=== PATIENT | female | born 1990 | race Caucasian/White ===

== ENCOUNTER 2024-11-02 04:52 | Emergency (ER) | payer SELFPAY ==
[2024-11-02 05:02] VITALS: BP 133/78; PULSE 97; RESP 18; TEMP 37.1; O2SAT 100
== END 2024-11-02 07:30 | disposition left against medical advice (07) ==
DX: R10.30 Lower abdominal pain, unspecified (principal)
CPT/HCPCS: 99199

== ENCOUNTER 2025-05-14 04:24 | Emergency (ER) | payer OTHER, SELFPAY ==
--- NOTE | ~2025-05-14 | US_ITS ---
Pelvic ultrasound. Clinical History: Retained products of conception Technique: Realtime transabdominal and transvaginal scanning of the pelvis was performed. Color flow Doppler and Doppler spectral analysis were performed. Findings: The uterus is anteverted. The endometrial stripe is markedly thickened and heterogeneous, measuring up to 33 mm in thickness. Possible small foci of vascular flow within the endometrium on co troy imaging. The right ovary measures 3.1 x 3.3 x 1.8 cm. No significant right ovarian or adnexal mass is seen. The left ovary measures 1.8 x 1.6 x 1.4 cm. No significant left ovarian or adnexal mass is seen. There is a small amount of free fluid in the cul de sac. Impression: Markedly thickened endometrium with small foci of vascular flow. Findings suggest retained products o f conception. Reviewed, dictated and finalized at [facility]. Impression: Markedly thickened endometrium with small foci of vascular flow. Findings sugge st retained products of conception.
[2025-05-14 04:28] VITALS: BP 140/79; PULSE 90; RESP 20; TEMP 36.2; O2SAT 97
[2025-05-14 04:42] LABS: Basophils Percent Auto 0.4 % (0.2-1.2); Eosinophils Absolute Auto 0.1 K/mm3 (0-0.3); Eosinophils Percent Auto 1.4 % (0-4.4); Hematocrit 40.1 % (37.0-47.0); Hemoglobin 13.3 g/dL (12.0-15.0); Immature Granulocyte Absolute 0.02 K/mm3 (0.00-0.031); Immature Granulocyte Percent A 0.3 % (0-0.5); Lymphocytes Absolute Auto 1.53 K/mm3 (0.9-3.2); Lymphocytes Percent Auto 19.2 % (18.3-44.2); Mean Corpuscular HGB Conc 33.2 g/dl (32-36); Mean Corpuscular Hemoglobin 30.8 pg (26-34); Mean Corpuscular Volume 92.8 fl (80-100); Mean Platelet Volume 9.2 fl (7.4-10.4); Monocytes Absolute Auto 0.5 K/mm3 (0.1-0.6); Monocytes Percent Auto 6.4 % (2.6-8.5); Neutrophils Absolute Auto 5.8 K/mm3 (1.3-6.7); Neutrophils Percent Auto 72.3 % (45.5-73.1); Platelet Count Result 256 k/mm3 (150-375); Red Blood Count 4.32 M/mm3 (4.2-5.4); Red Cell Distribution Width 12.4 % (11.5-14.5)
[2025-05-14 04:52] LABS: INR 1.1; Prothrombin Time 13.8 Seconds (11.1-14.7)
[2025-05-14] MEDS: LACTATED RINGERS 1,000 ML 999 ML IV CONT (04:53)
[2025-05-14 05:00] LABS: Alanine Aminotransferase 19 U/L (6-35); Albumin Level 4.3 g/dL (3.5-5.1); Alkaline Phosphatase 61 U/L (38-126); Anion Gap 11 mmol/L (4-12); Aspartate Amino Transferase 24 U/L (14-36); Bilirubin,Total 0.6 mg/dL (0.2-1.3); Blood Urea Nitrogen 17 mg/dL (7-17); Carbon Dioxide 21 mmol/L (22-30); Chloride 107 mmol/L (98-107); Estimated CRCL calculation 118 ml/min; Estimated Glomerular Filt Rate > 60; Glucose 101 mg/dL (65-110); Sodium 139 mmol/L (137-145); Total Protein 8.1 g/dL (6.3-8.2)
[2025-05-14 05:10] LABS: Partial Thromboplastin Time 26.5 Seconds (22.3-36.8)
--- NOTE | 2025-05-14 05:28 | ED.GENADULT ---
HPI - General Adult General Chief complaint: Vaginal Bleeding <Ralph James MD - Last Filed: 05/14/25 19:18> Stated complaint: vaginal bleeding for 6 weeks <Ralph James MD - Last Filed: 05/14/25 19:18> Time Seen by Provider: 05/14/25 04:27 <Ralph James MD - Last Filed: 05/14/25 19:18> History of Present Illness HPI narrative: 35-year-old female presented emergency department for evaluation for heavy vaginal bleeding that started this morning approximately 130. Patient did have an elective medical on May 02 and . Patient was started on mifepristone on the misoprostol on the . Patient did not started her bruise control and 6/15 (slynd). Patient reports on the and she did have some heavy bleeding that then tapered down. Patient was not having any bleeding or spotting over the last few days until this morning when she large clots that she was passing vaginally. Patient does report lower abdominal cramping <Ralph James MD - Last Filed: 05/14/25 19:18> 35-year-old female presented emergency department for evaluation for heavy vaginal bleeding that started this morning approximately 130. Patient did have an elective medical on APRIL 01 and . Patient was started on mifepristone on the misoprostol on the . Patient did not started her bruise control and 6/15 (slynd). Patient reports on the and she did have some heavy bleeding that then tapered down. Patient was not having any bleeding or spotting over the last few days until this morning when she large clots that she was passing vaginally. Patient does report lower abdominal cramping. Patient reports that she did have a dating ultrasound through [facility] which showed an IUP and when she took the medication for termination she was approximately 7 weeks in gestation. She did not establish care with Gynecology at [facility]. She does not have a local corrections specialist. She used a telephone service to obtain medication. <Aidan Gallo MD - Last Filed: 05/14/25 09:24> Related Data Allergies/adverse reactions: Allergies Allergy/AdvReac Type Severity Reaction Status Date / Time No Known Allergies Allergy Verified 05/14/25 09:07 <Ralph James MD - Last Filed: 05/14/25 19:18> Review of Systems Review of Systems: All systems reviewed & are unremarkable except as noted in HPI and below <Ralph James MD - Last Filed: 05/14/25 19:18> PMFSH Past Medical History Medical History: Medical History (Updated 05/14/25 @ 09:23 by Aidan Gallo MD) Healthy female adult <Ralph James MD - Last Filed: 05/14/25 19:18> Exam Narrative: APPEARANCE: Well appearing, no pain, no distress, well-nourished. HEAD: normocephalic, atraumatic. EYES: PERRLA/EOMI, conjunctivae clear. NOSE: Normal no drainage EARS:TMS clear with good light reflex. THROAT: Pharynx clear, no exudate. NECK: Supple. No adenopathy, no masses. RESPIRATORY: Airway patent, respirations nonlabored. Clear to auscultation bilaterally, no rales, rhonchi, wheezing. CARDIOVASCULAR: Regular rate and rhythm without murmurs rubs or gallops. ABDOMINAL: Lower abdominal tenderness to palpation MUSCULOSKELETAL: Moves all extremities. Strength/ROM intact, No edema, No calf tenderness. NEURO: Alert. Cranial nerves II through XII intact. Good gait. Good coordination SKIN: Warm, dry. Normal Color Pelvic exam: Mild bleeding from the cervix with no hemorrhage and no large clots visualized within the vaginal vault <Ralph James MD - Last Filed: 05/14/25 19:18> Course Course Emergency Course: 917: Patient updated on all labs and imaging results. Discussed case with Dr. Pinto. Recommends repeat beta hCG on 05/16/25 and follow-up in office. Does not recommend RhoGAM as she is 6 weeks out from the . Patient verbalized understanding for follow-up needs. Patient is stable with normal blood pressure/heart rate as well as normal lab work. No evidence of sepsis or significant hemorrhage. Patient is a elective AB 1. <Aidan Gallo MD - Last Filed: 05/14/25 09:24> Vital Signs Vital signs: Vital Signs Temperature 97.2 F L 05/14/25 04:28 Pulse Rate 90 05/14/25 04:28 Respiratory Rate 20 05/14/25 04:28 Blood Pressure 140/79 06/24/25 04:28 Pulse Oximetry 97 05/14/25 04:28 Oxygen Delivery Room Air 05/14/25 04:28 Temperature 97.2 F L 05/14/25 04:28 Pulse Rate 70 05/14/25 09:40 Respiratory Rate 18 05/14/25 09:40 Blood Pressure 127/89 05/14/25 09:40 Pulse Oximetry 100 05/14/25 09:40 Oxygen Delivery Room Air 05/14/25 04:28 <Ralph James MD - Last Filed: 05/14/25 19:18> Vital Signs Temperature 97.2 F L 05/14/25 04:28 Pulse Rate 90 05/14/25 04:28 Respiratory Rate 20 05/14/25 04:28 Blood Pressure 140/79 05/14/25 04:28 Pulse Oximetry 97 05/14/25 04:28 Oxygen Delivery Room Air 05/14/25 04:28 Temperature 97.2 F L 05/14/25 04:28 Pulse Rate 70 05/14/25 09:40 Respiratory Rate 18 05/14/25 09:40 Blood Pressure 127/89 05/14/25 09:40 Pulse Oximetry 100 05/14/25 09:40 Oxygen Delivery Room Air 05/14/25 04:28 <Aidan Gallo MD - Last Filed: 05/14/25 09:24> Medical Decision Making Vital Signs Vital Signs: Vital Signs Temperature 97.2 F L 05/14/25 04:28 Pulse Rate 90 05/14/25 04:28 Respiratory Rate 20 05/14/25 04:28 Blood Pressure 140/79 05/14/25 04:28 Pulse Oximetry 97 05/14/25 04:28 Oxygen Delivery Room Air 05/14/25 04:28 Temperature 97.2 F L 05/14/25 04:28 Pulse Rate 70 05/14/25 09:40 Respiratory Rate 18 05/14/25 09:40 Blood Pressure 127/89 05/14/25 09:40 Pulse Oximetry 100 05/14/25 09:40 Oxygen Delivery Room Air 05/14/25 04:28 <Ralph James MD - Last Filed: 05/14/25 19:18> Vital Signs Temperature 97.2 F L 05/14/25 04:28 Pulse Rate 90 05/14/25 04:28 Respiratory Rate 20 05/14/25 04:28 Blood Pressure 140/79 05/14/25 04:28 Pulse Oximetry 97 05/14/25 04:28 Oxygen Delivery Room Air 05/14/25 04:28 Temperature 97.2 F L 05/14/25 04:28 Pulse Rate 70 05/14/25 09:40 Respiratory Rate 18 05/14/25 09:40 Blood Pressure 127/89 05/14/25 09:40 Pulse Oximetry 100 05/14/25 09:40 Oxygen Delivery Room Air 05/14/25 04:28 <Aidan Gallo MD - Last Filed: 05/14/25 09:24> Lab Data Result diagrams: 05/14/25 04:36 05/14/25 04:35 <Ralph James MD - Last Filed: 05/14/25 19:18> Labs: Lab Results 05/14/25 05/14/25 05/14/25 Range/Units 04:35 04:36 05:46 WBC 8.0 (4.5-10.0) K/mm3 RBC 4.32 (4.2-5.4) M/mm3 Hgb 13.3 (12.0-15.0) g/dL Hct 40.1 (37.0-47.0) % MCV 92.8 (80-100) fl MCH 30.8 (26-34) pg MCHC 33.2 (32-36) g/dl RDW 12.4 (11.5-14.5) % Plt Count 256 (150-375) k/mm3 MPV 9.2 (7.4-10.4) fl Immature Gran % (Auto) 0.3 (0-0.5) % Neut % (Auto) 72.3 (45.5-73.1) % Lymph % (Auto) 19.2 (18.3-44.2) % Island % (Auto) 6.4 (2.6-8.5) % Eos % (Auto) 1.4 (0-4.4) % Baso % (Auto) 0.4 (0.2-1.2) % Lymph # (Auto) 1.53 (0.9-3.2) K/mm3 Island # (Auto) 0.5 (0.1-0.6) K/mm3 Eos # (Auto) 0.1 (0-0.3) K/mm3 Baso # (Auto) 0.0 (0.0-0.1) K/mm3 Abs Immat Gran (auto) 0.02 (0.00-0.031) K/mm3 Absolute Neuts (auto) 5.8 (1.3-6.7) K/mm3 Absolute Nucleated RBC 0.000 (0.0-0.012) K/mm3 Nucleated RBC % 0.0 (0.0-0.2) % PT 13.8 (11.1-14.7) Seconds INR 1.1 APTT 26.5 (22.3-36.8) Seconds Sodium 139 (137-145) mmol/L Potassium 4.0 (3.4-5.0) mmol/L Chloride 107 (98-107) mmol/L Carbon Dioxide 21 L (22-30) mmol/L Anion Gap 11 (4-12) mmol/L BUN 17 (7-17) mg/dL Creatinine 0.63 L (0.7-1.0) mg/dL Estim Creat Clear Calc 118 ml/min Estimated GFR > 60 (59 - ) Glucose 101 (65-110) mg/dL Calcium 9.0 (8.4-10.2) mg/dL Total Bilirubin 0.6 (0.2-1.3) mg/dL AST 24 (14-36) U/L ALT 19 (6-35) U/L Alkaline Phosphatase 61 (38-126) U/L Total Protein 8.1 (6.3-8.2) g/dL Albumin 4.3 (3.5-5.1) g/dL Beta HCG, Quant 55.90 mIU/ML Urine Color Dark yellow (Yellow) Urine Appearance Cloudy H (Clear) Urine pH 5.5 (5.0-9.0) Ur Specific [place] 1.032 (1.001-1.035) Urine Protein 2+ H (Negative) mg/dL Urine Glucose (UA) Negative (Negative) mg/dL Urine Ketones Trace H (Negative) mg/dL Ur Blood (Man) 3+ H (Negative) Urine Nitrate Negative (Negative) Urine Bilirubin Negative (Negative) Urine Urobilinogen 1.0 (<2.0) mg/dL Add Ur Microanalysis Reviewed Leukocyte Esterase Rfl 1+ H (Negative) DARY/UL Urine RBC >100 H (0-2) /hpf Urine WBC 0-5 (0-3) /hpf Ur Squamous Epith Cells Occasional (Few) /hpf Urine Bacteria None seen /hpf Urine Casts 0-2 Blood Type O Negative Antibody Screen Negative <Ralph James MD - Last Filed: 05/14/25 19:18> Lab Results 05/14/25 05/14/25 05/14/25 Range/Units 04:35 04:36 05:46 WBC 8.0 (4.5-10.0) K/mm3 RBC 4.32 (4.2-5.4) M/mm3 Hgb 13.3 (12.0-15.0) g/dL Hct 40.1 (37.0-47.0) % MCV 92.8 (80-100) fl MCH 30.8 (26-34) pg MCHC 33.2 (32-36) g/dl RDW 12.4 (11.5-14.5) % Plt Count 256 (150-375) k/mm3 MPV 9.2 (7.4-10.4) fl Immature Gran % (Auto) 0.3 (0-0.5) % Neut % (Auto) 72.3 (45.5-73.1) % Lymph % (Auto) 19.2 (18.3-44.2) % Island % (Auto) 6.4 (2.6-8.5) % Eos % (Auto) 1.4 (0-4.4) % Baso % (Auto) 0.4 (0.2-1.2) % Lymph # (Auto) 1.53 (0.9-3.2) K/mm3 Island # (Auto) 0.5 (0.1-0.6) K/mm3 Eos # (Auto) 0.1 (0-0.3) K/mm3 Baso # (Auto) 0.0 (0.0-0.1) K/mm3 Abs Immat Gran (auto) 0.02 (0.00-0.031) K/mm3 Absolute Neuts (auto) 5.8 (1.3-6.7) K/mm3 Absolute Nucleated RBC 0.000 (0.0-0.012) K/mm3 Nucleated RBC % 0.0 (0.0-0.2) % PT 13.8 (11.1-14.7) Seconds INR 1.1 APTT 26.5 (22.3-36.8) Seconds Sodium 139 (137-145) mmol/L Potassium 4.0 (3.4-5.0) mmol/L Chloride 107 (98-107) mmol/L Carbon Dioxide 21 L (22-30) mmol/L Anion Gap 11 (4-12) mmol/L BUN 17 (7-17) mg/dL Creatinine 0.63 L (0.7-1.0) mg/dL Estim Creat Clear Calc 118 ml/min Estimated GFR > 60 (59 - ) Glucose 101 (65-110) mg/dL Calcium 9.0 (8.4-10.2) mg/dL Total Bilirubin 0.6 (0.2-1.3) mg/dL AST 24 (14-36) U/L ALT 19 (6-35) U/L Alkaline Phosphatase 61 (38-126) U/L Total Protein 8.1 (6.3-8.2) g/dL Albumin 4.3 (3.5-5.1) g/dL Beta HCG, Quant 55.90 mIU/ML Urine Color Dark yellow (Yellow) Urine Appearance Cloudy H (Clear) Urine pH 5.5 (5.0-9.0) Ur Specific [place] 1.032 (1.001-1.035) Urine Protein 2+ H (Negative) mg/dL Urine Glucose (UA) Negative (Negative) mg/dL Urine Ketones Trace H (Negative) mg/dL Ur Blood (Man) 3+ H (Negative) Urine Nitrate Negative (Negative) Urine Bilirubin Negative (Negative) Urine Urobilinogen 1.0 (<2.0) mg/dL Add Ur Microanalysis Reviewed Leukocyte Esterase Rfl 1+ H (Negative) DARY/UL Urine RBC >100 H (0-2) /hpf Urine WBC 0-5 (0-3) /hpf Ur Squamous Epith Cells Occasional (Few) /hpf Urine Bacteria None seen /hpf Urine Casts 0-2 Blood Type O Negative Antibody Screen Negative <Aidan Gallo MD - Last Filed: 05/14/25 09:24> Imaging Data Radiologist's impression: ITS Impressions Pelvic/Transvag US 05/14/25 08:06 Impression: Markedly thickened endometrium with small foci of vascular flow. Findings suggest retained products of conception. <Aidan Gallo MD - Last Filed: 05/14/25 09:24> Discharge Plan Discharge Clinical Impression: Retained products of conception <Ralph James MD - Last Filed: 05/14/25 19:18> Patient Disposition: Home <Ralph James MD - Last Filed: 05/14/25 19:18> Condition: Stable <Ralph James MD - Last Filed: 05/14/25 19:18> Additional Instructions: It is felt you have retained products of conception. You may require a procedure called a dilation and curettage. You need to obtain a repeat blood test in 2 days through the [facility] lab. You also need to follow-up with the manufacturing electrician listed. Return to the ER if you have worsening bleeding, you have fever over 100.4? F, or you have additional concerns. <Ralph James MD - Last Filed: 05/14/25 19:18> Patient Language: [place] Islander <Ralph James MD - Last Filed: 05/14/25 19:18> Other Ambulatory Orders: Beta HCG Quantitative (Routine) Timeframe: [id number] Facility: [facility] - Location: [facility] Laboratory Ordered By: Aidan Gallo <Ralph James MD - Last Filed: 05/14/25 19:18> Follow-up/Referrals: Joceline Pinto MD [Physician] - 2 Days PHYSICIAN,CLINICAL SYSTEMS EDUCATOR [Primary Care Provider] - <Ralph James MD - Last Filed: 05/14/25 19:18>
[2025-05-14 06:12] LABS: Add Urine Microscopic? YES; Appearance Urine Cloudy (Clear); Bacteria Urine None Seen /hpf; Bilirubin Urine Negative (Negative); Blood Urine 3+ (Negative); Color Urine Dark Yellow (Yellow); Glucose Urine UA Negative (Negative); Ketones Urine Trace mg/dL (Negative); Leukocyte Esterase Ur 1+ LEU/UL (Negative); Need Manual Microscopic Reviewed; Nitrate Urine Negative (Negative); Non Pathogenic Casts 0-2; Protein Urine 2+ mg/dL (Negative); RBC Urine >100 /hpf (0-2); Specific Grav Ur 1.032 (1.001-1.035); Squamous Epithelial Cell Urine Occasional /hpf (Few); WBC Urine 0-5 /hpf (0-3); pH Urine 5.5 (5.0-9.0)
[2025-05-14] MEDS: HYDROmorphone HCL INJ (*CRX) 2 MG/ML VIAL 0.5 MG IV PUSH (06:33)
[2025-05-14 06:53] VITALS: BP 112/71; PULSE 64; RESP 15; O2SAT 100
[2025-05-14 08:05] VITALS: BP 123/80; PULSE 72; RESP 20; O2SAT 99
[2025-05-14 09:40] VITALS: BP 127/89; PULSE 70; RESP 18; O2SAT 100
== END 2025-05-14 09:42 | disposition home or self-care (01) ==
PROVIDERS: Emergency Medicine; Emergency Provider Emergency Medicine
DX: O07.4 Failed attempted termination of pregnancy without complication (principal)
CPT/HCPCS: 36415; 76830; 76856; 80053; 81001; 84702; 85025; 85610; 85730; 86850; 86900; 86901; 87086; 96361; 96374; 99284; J1171; J7120

== ENCOUNTER 2025-05-17 08:21 | Outpatient (CLI) | payer OTHER, SELFPAY ==
[2025-05-17 09:11] LABS: Beta HCG Quantitative 11.76 mIU/ML
== END 2025-05-17 08:22 | disposition home or self-care (01) ==
PROVIDERS: Referring Provider Obstetrics & Gynecology Gynecology; Visit Provider Emergency Medicine
DX: O03.4 Incomplete spontaneous abortion without complication (principal)
CPT/HCPCS: 36415; 84702

== ENCOUNTER 2025-05-27 08:22 | Outpatient (CLI) | payer OTHER, SELFPAY ==
--- OUTSIDE RECORDS SUMMARY | 2025-05-27 08:36 | XMS_ITS | Clinical Summary ---
Author Organization [facility] al Address [address] [place] [address] Care Team Providers Care Formwork Carpenter Name Role Phone No, Physician Primary Care Provider [phone] Allergies No known active allergies Medications omeprazole (PriLOSEC) 20 mg capsule Take 1 capsule (20 mg total) by mouth daily for 14 days 14 capsule 4 Active ciprofloxacin (CIPRO) 500 mg tablet Take 1 tablet (500 mg total) by mouth 2 (two) times a day 14 tablet 4 Active ondansetron ODT (ZOFRAN-ODT) 4 mg disintegrating tablet Dissolve 1 tablet oral every 4 hours as needed for nausea or vomiting. 15 tablet 4 Active dicyclomine (BENTYL) 20 mg tablet Take 1 tablet (20 mg total) by mouth 2 (two) times a day as needed (pain) for up to 10 doses 10 tablet 4 Active Encounters Date Type Department Care Team Description 03/31/2025 4:50 PM CDT - 03/31/2025 9:21 PM CDT Emergency [facility] Emergency Department 1 [place] [address] Jian Brady MD as incidental finding (Primary Dx); Abdominal pain Discharge Disposition: Discharge to home or self care from Last 3 Months Social History Tobacco Use Types Packs/Day Years Used Date Smoking Tobacco: Never Assessed Personal Safety Answer Date Recorded Have you ever been in or are you currently in a harmful physical or emotional relationship or is someone making you feel afraid or unsafe? 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 Gender Identity Not on file Sexual Orientation Not on file Obstetrics History Last Filed Vital Signs Vital Sign Reading Time Taken Comments Blood Pressure 136/75 03/31/2025 4:42 PM CDT Pulse 77 03/31/2025 4:42 PM CDT Temperature 36.9 C (98.5 F) 03/31/2025 4:42 PM CDT Respiratory Rate 16 03/31/2025 4:42 PM CDT Oxygen Saturation 100% 03/31/2025 4:42 PM CDT Inhaled Oxygen Concentration - - Weight 98.9 kg (218 lb) 03/31/2025 4:42 PM CDT Height 157.5 cm (5' 2) 03/31/2025 4:42 PM CDT Body Mass Index 39.87 03/31/2025 4:42 PM CDT Plan of Treatment Health Maintenance Due Date Last Done Comments Cervical Cancer Screening 1989 Depression Screening 1989 Hepatitis C Screening 1989 Varicella Vaccines (1 of 2 - 13+ 2-dose series) 2002 Hepatitis B Screening 2007 Regular Well Visit/Exam 18-64 2007 Influenza Vaccine (Season Ended) 2025 04/13/20 10 DTaP/Tdap/Td Vaccine (2 - Td or Tdap) 01/20/2027 01/20/2017 HPV Vaccines Aged Out No longer eligi ble based on patient's age to complete this topic Pneumococcal vaccine <65 Aged Out No longer eligible based on patient's age to complete this topic Procedures Procedure Name Priority Date/Time Associated Diagnosis Comments POCUS FEMALE TAB PELVIC, NON- 03/31/2025 9:07 PM CDT URINALYSIS, MICROSCOPIC ONLY STAT 03/31/2025 5:20 PM CDT URINALYSIS AND REFLEX TO MICROSCOPIC AND CULTURE STAT 03/31/2025 5:20 PM CDT EGFR STAT 03/31/2025 5:06 PM CDT DIFFERENTIAL AUTO STAT 03/31/2025 5:0 6 PM CDT COMPREHENSIVE METABOLIC PANEL STAT 03/31/2025 5:06 PM CDT CBC WITH AUTO DIFFERENTIAL STAT 03/31/2025 5:06 PM CDT HCG, BLOOD, QUANTITATIVE STAT 03/31/2025 5:06 PM CDT POCT HCG, URINE Routine 03/31/2025 4:57 PM CDT from Last 3 Months Results * POCUS Female TAB Pelvic, Non- (03/31/2025 9:07 PM CDT) Anatomical Region Laterality Modality Other 03/31/2025 8:51 PM CDT Narrative 03/31/2025 9:35 PM CDT Performed by: Jian Brady Transabdominal: Exam Information: Exam type: Diagnostic Indication(s) for Exam: by history, Quantitative hCG (+), Urine hCG (+) Findings: IUP: Present Intrauterine findings: heart rate heart rate =: 152 Interpretation: Live IUP Electronically signed by Jian Brady on Monday, March 31, 2025 at 9:35 PM I have reviewed the images & the resident's interpretation. I agree with the findings. Images on file. Procedure Note Jian Brady MD - 03/31/2025 Performed by: Jian Brady Transabdominal: Exam Information: Exam type: Diagnostic Indication(s) for Exam: by history, Quantitative hCG (+), Urine hCG (+) Findings: IUP: Present Intrauterine findings: heart rate heart rate =: 152 Interpretation: Live IUP Electronically signed by Jian Brady on Monday, March 31, 2025 at 9:35 PM I have reviewed the images & the resident's interpretation. I agree withthe findings. Images on file. us Jian Brady MD POCUS ORDERABLES Final Result * (ABNORMAL) Urinalysis reflex to microscopic and culture Urine (03/31/2025 5:20 PM CDT) Color, ur Yellow Yellow Clarity, ur Clear Clear [facility] Specific gravity, ur 1.032(H) 1.003 - 1.030 [facility] pH, urine 5.5 [facility] Comment: Interpretive Data U rine pH is affected by diet, medications, systemic acid-base disturbances, and renal tubular function. pH may affect urinary stone formation. For example, urine pH below 6.0 may help reduce the tendency for calcium phosphate stones and pH greater than 6.0 may reduce the tendency for uric acid stone formation. Source: [facility] [email or web address] Current Interpretive Data was last revised on 2017 Protein, ur ql Trace Negative [facility] Glucose, ur ql Negative Negative [facility] Ketones, ur Negative Negative [facility] Bilirubin, ur Negative Negative [facility] Blood, ur Trace(A) Negative [facility] Urobilinogen, ur <2.0 <2.0 mg/dL [facility] Nitrite, ur Negative Negative [facility] Leukocyte esterase, ur Trace(A) Negative [facility] UA reflex comment Reflex to microscopic UA will be performed. [facility] Urine 03/31/2025 5:20 PM CDT 03/31/2025 5:25 PM CDT us Jian Brady MD LAB MICROBIOLOGY - GENERAL OR DERABLES Final Result [facility] Department [place] [address] * (ABNORMAL) Urinalysis, microscopic only (03/31/2025 5:20 PM CDT) WBC, ur 0-5 0 - 5 /HPF RBC, ur 0-2 0 - 2 /HPF [facility] Epithelial cells, squamous, ur 1-5 0 - 5 /HPF [facility] Bacteria, ur Trace(A) [facility] Mucous, ur Present(A) [facility] Culture Reflex Comment Reflex conditions for urine culture (WBC >10) not met. [facility] Urine 03/31/2025 5:20 PM CDT 03/31/2025 5:25 PM CDT Jian Brady MD LAB URINE ORDERABLES Final Re sult Performing Organization Address [facility] de Phone Number [facility] [place] [email or web address] [address] * eGFR (03/31/2025 5:06 PM CDT) eGFR >90 >=60 mL/min/1. 73 m2 Comment: Interpretive Data Reference Interval Normal >/= 90 mL/min/1.73m2 Mildly decreased* 60 - 89 mL/min/1.73m2 Mildly to moderately decreased 45 - 59 mL/min/1.73m2 Moderately to severely decreased 30 - 44 mL/min/1.73m2 Severely decreased 15 - 29 mL/min/1.73m2 Kidney Failure < 15 mL/min/1.73m2 *Relative to young adult level Estimated glomerular filtration rate is determined by the 2020 CKD-EPI equation recommended by the National Kidney Foundation (A Unifying Approach to GFR Estimation: Recommendations of the NKF-ASK Task Force on Reassessing the Inclusion of Race in Diagnosing Kidney Disease, JASN 2020). The CKD-EPI equation should not be used for patients with unstable renal function and has not been validated in children and those over 70. Current interpretive data was last reviewed 2021. Blood 03/31/2025 5:06 PM CDT 03/31/2025 5:36 PM CDT Jian Brady MD LAB BLOOD ORDERABLES Final Re sult Performing Organization Address [facility] de Phone Number [facility] [email or web address] [address] * (ABNORMAL) Differential, auto (03/31/2025 5:06 PM CDT) Neutrophil abs 7.26(H) 1.50 - 6.50 K/cumm Imm gran abs 0.04 0.00 - 0.10 K/cumm [facility] Lymphocyte abs 1.87 0.80 - 3.30 K/cumm [facility] Monocyte abs 0.81(H) 0.20 - 0.80 K/cumm [facility] Eosinophil abs 0.15 0.00 - 0.50 K/cumm [facility] Basophil abs 0.05 0.00 - 0.10 K/cumm [facility] Neutrophil pct 71.2 % [facility] Comment: Interpretive Data Percent cell count reference ranges are not reported, since discordance with absolute values may lead to misinterpretation of CBC data. Current Interpretive Data was last revised on 2018. Imm gran pct 0.4 % [facility] Comment: Interpretive Data Percent cell count reference ranges are not reported, since discordance with absolute values may lead to misinterpretation of CBC data. Current Interpretive Data was last revised on 2018. Lymphocyte pct 18.4 % [facility] Comment: Interpretive Data Percent cell count reference ranges are not reported, since discordance with absolute values may lead to misinterpretation of CBC data. Current Interpretive Data was last revised on 2018. Monocyte pct 8.0 % [facility] Comment: Interpretive Data Percent cell count reference ranges are not reported, since discordance with absolute values may lead to misinterpretation of CBC data. Current Interpretive Data was last revised on 2018. Eosinophil pct 1.5 % [facility] Comment: Interpretive Data Percent cell count reference ranges are not reported, since discordance with absolute values may lead to misinterpretation of CBC data. Current Interpretive Data was last revised on 2018. Basophil pct 0.5 % [facility] Comment: Interpretive Data Percent cell count reference ranges are not reported, since discordance with absolute values may lead to misinterpretation of CBC data. Current Interpretive Data was last revised on 2018. Blood 03/31/2025 5:06 PM CDT 03/31/2025 5:36 PM CDT Jian Brady MD LAB BLOOD ORDERABLES Final Re sult Performing Organization Address City/State/[facility] de Phone Number [facility] Department [place] [address] * (ABNORMAL) CBC with auto differential (03/31/2025 5:06 PM CDT) [facility] WBC 10.18(H) 3.80 - 9.90 K/cumm Hgb 13.2 11.9 - 15.5 g/dL [facility] Hct 38.1 35.6 - 45.5 % [facility] Plt 268 150 - 400 K/cumm [facility] MPV 10.7 9.1 - 12.3 fL [facility] RBC 4.19 3.90 - 5.20 M/cumm [facility] MCV 90.9 81.3 - 96.4 fL [facility] MCH 31.5 27.1 - 33.3 pg [facility] MCHC 34.6 32.3 - 35.7 g/dL [facility] RDW CV 12.5 11.1 - 14.9 % [facility] RDW SD 41.1 35.7 - 48.1 fL [facility] NRBC abs 0.00 0.00 - 0.01 K/cumm [facility] Blood 03/31/2025 5:06 PM CDT 03/31/2025 5:36 PM CDT Jian Brady MD LAB BLOOD ORDERABLES Final Re rafit Performing Organization Address [facility] de Phone Number [facility] Department [place] [address] * (ABNORMAL) hCG, blood, quantitative (03/31/2025 5:06 PM CDT) [facility] hCG, quant 80,100.0( H) 0.0 - 5.0 IUnits/L Comment: Repeated on Dilution Interpretive Data Male: < 5 IU/L Non- premenopausal Female: <5 IU/L The Cordelia hCG Beta Quant assay procedure was used. Results from different manufacturers or methods may not be comparable. Serial testing should be performed using the same method. Interpretive Data was last revised on 2023 Blood 03/31/2025 5:06 PM CDT 03/31/2025 5:36 PM CDT us Jian Brady MD LAB BLOOD ORDERABLES Final Re sult [facility] Department [place] [address] * (ABNORMAL) Comprehensive metabolic panel (03/31/2025 5:06 PM CDT) Sodium 136 135 - 145 mmol/L Potassium, pl See Comment 3.3 - 4.9 mmol/L [facility] Comment:Credited; Hemolyzed Specimen Chloride 106 97 - 110 mmol/L [facility] CO2 16(L) 22 - 32 mmol/L [facility] Anion gap 14 2 - 15 mmol/L [facility] BUN 17 6 - 25 mg/dL [facility] Creatinine 0.54(L) 0.60 - 1.10 mg/dL [facility] Glucose 91 70 - 199 mg/dL [facility] Comment: Interpretive Data Fasting glucose >/= 126 mg/dl is diagnostic for diabetes. Fasting is defined as no caloric intake for at least 8 hours. Fasting glucose between 100 mg/dl to 125 mg/dl is diagnostic of prediabetes. In a patient with classic symptoms of hyperglycemia or hyperglycemic crisis, a random glucose >/= 200 mg/dl is diagnostic for diabetes. In the absence of unequivocal hyperglycemia, results should be confirmed by repeat testing. The classification and Diagnosis of Diabetes Diabetes Care 202; 46: S19-S40. Current interpretive data was last revised 2022. Calcium 9.3 8.5 - 10.3 mg/dL [facility] Bilirubin, total 0.3 0.1 - 1.2 mg/dL [facility] Protein, pl 7.4 6.5 - 8.5 g/dL [facility] Albumin 3.5 3.5 - 5.0 g/dL [facility] Alk phos 60 40 - 130 Units/L [facility] Comment:Hemolyzed; result ma y be falsely decreased ALT See Comment 7 - 45 Units/L [facility] Comment:Credited; Hemolyzed Specimen AST See Comment 10 - 45 Units/L [facility] Comment:Credited; Hemolyzed Specimen Blood 03/31/2025 5:06 PM CDT 03/31/2025 5:36 PM CDT us Jian Brady MD LAB BLOOD ORDERABLES Final Re sult [facility] Department [place] [address] * (ABNORMAL) POCT hCG, urine (03/31/2025 4:57 PM CDT) HCG, ur, POC Positive(A) Negative Lot Number [id number] QC Backgroud Clear Acceptable QC Control Line Acceptable Urine 03/31/2025 4:57 PM CDT us Nicholas Faith MD POINT OF CARE TEST O RDERABLES Final Result from Last 3 Months Insurance [facility] Care Teams Formwork Carpenter Relationship Specialty Start Date End Date No, Physician PCP - General 03/31/25
--- OUTSIDE RECORDS SUMMARY | 2025-05-27 08:36 | XMS_ITS | Referral Summary ---
Author Organization [facility] al Address [address] [place] [address] Care Team Providers Care Flame Planer Name Role Phone No, Physician Primary Care Provider [phone] Encounters Date Type Department Care Team Description 03/31/2025 4:50 PM CDT - 03/31/2025 9:21 PM CDT Emergency [facility] Emergency Department [address] [place] [address] Jian Brady MD as incidental finding (Primary Dx); Abdominal pain Discharge Disposition: Discharge to home or self care from Last 3 Months Allergies No known active allergies Medications omeprazole [...] to 10 doses 10 tablet 4 Active Social History Tobacco Use Types Packs/Day Years [...] on file 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 Images on file. Jian Brady MD POCUS ORDERABLES Final Result * (ABNORMAL) Urinalysis reflex to microscopic and culture Urine (03/31/2025 5:20 PM CDT) Color, ur Yellow Yellow Clarity, ur Clear Clear [facility] Specific gravity, ur 1.032(H) 1.003 - 1.[address] [facility] pH, urine 5.5 [facility] Comment: Interpretive Data U rine pH is affected by diet, medications, systemic acid-base disturbances, and renal tubular function. pH may affect urinary stone formation. For example, urine pH below 6.0 may help reduce the tendency for calcium phosphate stones and pH greater than 6.0 may reduce the tendency for uric acid stone formation. Source: [facility] Current Interpretive Data was last revised on 2017 Protein, ur ql Trace Negative [facility] Glucose, ur ql Negative Negative [facility] Ketones, ur Negative Negative [facility] Bilirubin, ur Negative Negative [facility] Blood, ur Trace(A) Negative [facility] Urobilinogen, ur <2.0 <2.0 mg/dL [facility] Nitrite, ur Negative Negative [facility] Leukocyte esterase, ur Trace(A) Negative [facility] UA reflex comment Reflex to microscopic UA will be performed. [facility] Urine 03/31/2025 5:20 PM CDT 03/31/2025 5:25 PM CDT Jian Brady MD LAB MICROBIOLOGY - GENERAL OR DERABLES Final Result Performing Organization Address [facility] Co de Phone Number [facility] [email or web address] [address] * (ABNORMAL) Urinalysis, microscopic only (03/31/2025 5:20 PM CDT) WBC, ur 0-5 0 - 5 /HPF RBC, ur 0-2 0 - 2 /HPF [facility] Epithelial cells, squamous, ur 1-5 0 - 5 /HPF [facility] Bacteria, ur Trace(A) [facility] Mucous, ur Present(A) [facility] Culture Reflex Comment Reflex conditions for urine culture (WBC >10) not met. [facility] Urine 03/31/2025 5:20 PM CDT 03/31/2025 5:25 PM CDT Jian Brady MD LAB URINE ORDERABLES Final Re sult Performing Organization Address City/[facility]/ZIP Co de Phone Number [facility] [email or web address] [address] * eGFR (03/31/2025 5:06 PM CDT) eGFR [...] MD LAB BLOOD ORDERABLES Final Re sult [facility] Department [place] [address] * (ABNORMAL) Differential, auto (03/31/2025 5:06 PM CDT) Neutrophil abs 7.26(H) 1.50 - 6.50 K/cumm Imm gran abs 0.04 0.00 - 0.10 K/cumm [facility] Lymphocyte abs 1.87 0.80 - 3.30 K/cumm [facility] Monocyte abs 0.81(H) 0.20 - 0.80 K/cumm [facility] Eosinophil abs 0.15 0.00 - 0.50 K/cumm [facility] Basophil abs 0.05 0.00 - 0.10 K/cumm [facility] Neutrophil pct 71.2 % [facility] Comment: Interpretive Data Percent cell count reference ranges are not reported, since discordance with absolute values may lead to misinterpretation of CBC data. Current Interpretive Data was last revised on 2018. Imm gran pct 0.4 % [facility] Comment: Interpretive Data Percent cell count reference ranges are not reported, since discordance with absolute values may lead to misinterpretation of CBC data. Current Interpretive Data was last revised on 2018. Lymphocyte pct 18.4 % [facility] Comment: Interpretive Data Percent cell count reference ranges are not reported, since discordance with absolute values may lead to misinterpretation of CBC data. Current Interpretive Data was last revised on 2018. Monocyte pct 8.0 % [facility] Comment: Interpretive Data Percent cell count reference ranges are not reported, since discordance with absolute values may lead to misinterpretation of CBC data. Current Interpretive Data was last revised on 2018. Eosinophil pct 1.5 % [facility] Comment: Interpretive Data Percent cell count reference ranges are not reported, since discordance with absolute values may lead to misinterpretation of CBC data. Current Interpretive Data was last revised on 2018. Basophil pct 0.5 % [facility] Comment: Interpretive Data Percent cell count reference ranges are not reported, since discordance with absolute values may lead to misinterpretation of CBC data. Current Interpretive Data was last revised on 2018. Blood 03/31/2025 5:06 PM CDT 03/31/2025 5:36 PM CDT us Jian Brady MD LAB BLOOD ORDERABLES Final Re sult [facility] [place] [address] * (ABNORMAL) CBC with auto differential (03/31/2025 5:06 PM CDT) WBC 10.18(H) 3.80 - 9.90 K/cumm Hgb 13.2 11.9 - 15.5 g/dL [facility] Hct 38.1 35.6 - 45.5 % [facility] Plt 268 150 - 400 K/cumm [facility] MPV 10.7 9.1 - 12.3 fL [facility] RBC 4.19 3.90 - 5.20 M/cumm [facility] MCV 90.9 81.3 - 96.4 fL [facility] MCH 31.5 27.1 - 33.3 pg [facility] MCHC 34.6 32.3 - 35.7 g/dL [facility] RDW CV 12.5 11.1 - 14.9 % [facility] RDW SD 41.1 35.7 - 48.1 fL [facility] NRBC abs 0.00 0.00 - 0.01 K/cumm [facility] Blood 03/31/2025 5:06 PM CDT 03/31/2025 5:36 PM CDT Jian Brady MD LAB BLOOD ORDERABLES Final Re sult Performing Organization Address [facility] de Phone Number [facility] [place] [address] * (ABNORMAL) hCG, blood, quantitative (03/31/2025 5:06 PM CDT) Pathologist [facility] hCG, quant 80,100.0( H) 0.0 - 5.0 [...] ORDERABLES Final Re sult Performing Organization Address [facility] de Phone Number [facility] [place] [address] * (ABNORMAL) Comprehensive metabolic panel (03/31/2025 5:06 PM CDT) Sodium 136 135 - 145 mmol/L Potassium, pl See Comment 3.3 - 4.9 mmol/L [facility] Comment:Credited; Hemolyzed Specimen Chloride 106 97 - 110 mmol/L [facility] CO2 16(L) 22 - 32 mmol/L [facility] Anion gap 14 2 - 15 mmol/L [facility] BUN 17 6 - 25 mg/dL [facility] Creatinine 0.54(L) 0.60 - 1.10 mg/dL [facility] Glucose 91 70 - 199 mg/dL [facility] Comment: Interpretive Data Fasting glucose >/= 126 [...] 2022. Calcium 9.3 8.5 - 10.3 mg/dL [facility] Bilirubin, total 0.3 0.1 - 1.2 mg/dL [facility] Protein, pl 7.4 6.5 - 8.5 g/dL [facility] Albumin 3.5 3.5 - 5.0 g/dL [facility] Alk phos 60 40 - 130 Units/L [facility] Comment:Hemolyzed; result ma y be falsely decreased ALT See Comment 7 - 45 Units/L [facility] Comment:Credited; Hemolyzed Specimen AST See Comment 10 - 45 Units/L [facility] Comment:Credited; Hemolyzed Specimen Blood 03/31/2025 5:06 PM CDT 03/31/2025 5:36 PM CDT us Jian Brady MD LAB BLOOD ORDERABLES Final Re sult [facility] [place] [address] * (ABNORMAL) POCT hCG, urine (03/31/2025 4:57 PM CDT) HCG, ur, POC Positive(A) Negative Lot Number [id number] QC Backgroud Clear Acceptable QC Control Line Acceptable Urine 03/31/2025 4:57 PM CDT Nicholas Faith MD POINT OF CARE TEST O RDERABLES Final Result from Last 3 Months Insurance [facility] H[facility]/PPO Address: [address] [address] [facility] [employer]/PPO Address: [address] [address] Care Teams Flame Planer Relationship Specialty Start Date End Date No, Physician PCP - General 03/31/25
--- OUTSIDE RECORDS SUMMARY | 2025-05-27 08:36 | XMS_ITS | Clinical Summary ---
Author Organization [facility] Address [address] [place] [address] Phone Care Team Providers Care Paper Reel Operator Name Role Phone Unavailable Primary Care Provider Unavailabl e Allergies No known active allergies Medications mv-min/iron/folic /calcium/vitK (WOMEN'S MULTIVITAMIN ORAL) Take by mouth. Active ASCORBIC ACID, VITAMIN C, ORAL Take by mouth. Active triamcinolone acetonide (KENALOG) 0.1 % Cream Apply to affected area 2 times daily. 80 Gram Active cetirizine (ZyrTEC) 10 mg tablet Take 1 Tablet (10 mg) by mouth 2 times daily. Active Active Problems No known active problems Encounters Date Type Department Care Team Description 05/21/2025 External Device Data ST[facility] ABSTRACTION Provider, Abstract 05/20/2025 6:17 AM CDT - 05/20/2025 11:59 PM CDT Hospital Encounter [facility] [address] [place] [phone] Oskar Boo PA-C Discharge Disposition: Home or Self Care 05/14/2025 External Device Data STL ABSTRACTION Provider, Abstract 05/07/2025 External Device Data ST[facility] ABSTRACTION Provider, Abstract 04/27/2025 9:15 AM CDT Office Visit [facility] at the [address] [place] [phone] Oskar Boo PA-C Injury of right rotator cuff, initial encounter (Primary Dx); Strain of right shoulder, initial encounter 04/27/2025 8:10 AM CDT Ancillary Procedure [facility] at the [address] [place] [address] Oskar Boo PA-C Pain 04/11/2025 External Device Data STL ABSTRACTION Provider, Abstract 04/10/2025 External Device Data ST[facility] ABSTRACTION Provider, Abstract 04/09/2025 External Device Data STL ABSTRACTION Provider, Abstract 03/05/2025 External Device Data ST[facility] ABSTRACTION Provider, Abstract from Last 3 Months Social History Tobacco Use Types Packs/Day Years Used Date Smoking Tobacco: Every Day Cigarettes Smokeless Tobacco: Never Comments:VAPE every day. 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 Gender Identity Not on file Sexual Orientation Not on file Last Filed Vital Signs Vital Sign Reading Time Taken Comments Blood Pressure 116/84 01/26/2025 9:44 AM TOBACCO CUTTER Pulse 78 01/26/2025 9:44 AM TOBACCO CUTTER Temperature 36.8 C (98.3 F) 01/26/2025 9:44 AM TOBACCO CUTTER Respiratory Rate 20 01/26/2025 9:44 AM TOBACCO CUTTER Oxygen Saturation 99% 01/26/2025 9:44 AM TOBACCO CUTTER Inhaled Oxygen Concentration - - Weight 91.6 kg (202 lb) 04/27/2025 9:18 AM CDT Height 157.5 cm (5' 2) 04/27/2025 9:18 AM CDT Body Mass Index 36.95 04/27/2025 9:18 AM CDT Plan of Treatment Health Maintenance Due Date Last Done Comments Pre-Diabetes and Diabetes Screening 1989 HEPATITIS B VACCINES (1 of 3 - 19+ 3-dose series) 2008 HPV/Cotest (21-29) 2010 CERVICAL CANCER SCREENING 2019 HPV/Cotest (30-65) 2019 PAP SMEAR 2019 INFLUENZA VACCINE (#1) 2025 DTAP/TDAP/TD VACCINES (2 - T d or Tdap) 01/20/2027 01/20/2017 HPV VACCINES Aged Out No longer eligi ble based on patient's age to complete this topic Procedures Procedure Name Priority Date/Time Associated Diagnosis Comments MRI SHOULDER WO CONTRAST RIGHT Routine 05/20/2025 6:49 AM CDT Injury of right rotator cuff, initial encounter XR SHOULDER 2+ VW RIGHT Routine 04/27/2025 8:15 AM CDT Pain from Last 3 Months Results * MRI SHOULDER WO CONTRAST RIGHT (05/20/2025 6:49 AM CDT) Anatomical Region Laterality Modality Upper Extremity Magnetic Resonan ce 05/20/2025 6:50 AM CDT Impressions 05/20/2025 8:37 AM CDT IMPRESSION: 1. Curvilinear high fluid-sensitive signal within the superior labrum, can be seen with labral tear, however some component of underlying anatomic variation is also frequently present at this site. This can be further evaluated with MRI arthrogram. DICTATION LOCATION: Location [address] [place] [address] 05/20/2025 8:37 AM CDT MRI SHOULDER WO CONTRAST RIGHT DATE: 05/20/2025 6:49 AM HISTORY: Shoulder pain, rotator cuff disorder suspected, xray done COMPARISON: Radiograph dated 04/27/2025 TECHNIQUE: Multiplanar MR images of the right shoulder were obtained without contrast according to standard protocol. FINDINGS: Acromioclavicular joint: There is type I acromion. The joint space is preserved. Rotator cuff: Intact. Glenohumeral joint: Normally aligned. No high-grade cartilage lesion. Biceps and labrum: The long head of the biceps tendon is normally located with no discontinuity. Some curvilinear high fluid sensitive signal is seen within the superior labrum, with a portion of the process extending oriented superolaterally. Bones: No confluent bone marrow edema. Fluid and surrounding structures: There is no joint effusion. There is no bursal collection. There is no selective muscular atrophy. Procedure Note Harshil Montes MD - 05/20/2025 MRI SHOULDER WO CONTRAST RIGHT DATE: 05/20/2025 6:49 AM HISTORY: Shoulder pain, rotator cuff disorder suspected, xray done COMPARISON: Radiograph dated 04/27/2025 TECHNIQUE: Multiplanar MR images of the right shoulder were obtained without contrast according to standard protocol. FINDINGS: Acromioclavicular joint: There is type I acromion. The joint space is preserved. Rotator cuff: Intact. Glenohumeral joint: Normally aligned. No high-grade cartilage lesion. Biceps and labrum: The long head of the biceps tendon is normally located with no discontinuity. Some curvilinear high fluid sensitive signal is seen within the superior labrum, with a portion of the process extending oriented superolaterally. Bones: No confluent bone marrow edema. Fluid and surrounding structures: There is no joint effusion. There is no bursal collection. There is no selective muscular atrophy. IMPRESSION: 1. Curvilinear high fluid-sensitive signal within the superior labrum, can be seen with labral tear, however some component of underlying anatomic variation is also frequently present at this site. This can be further evaluated with MRI arthrogram. DICTATION LOCATION: [address] [place] Oskar Boo PA-C MR ORDERABLES Final Result * XR SHOULDER 2+ VW RIGHT (04/27/2025 8:15 AM CDT) Anatomical Region Laterality Modality Upper Extremity Computed Radiogr aphy 04/27/2025 8:15 AM CDT Impressions 04/27/2025 8:30 AM CDT IMPRESSION: No acute osseous injury. DICTATION LOCATION: [address] Narrative 04/27/2025 8:30 AM CDT XR SHOULDER 2+ VW RIGHT DATE: 04/27/2025 8:15 AM HISTORY: Pain COMPARISON: None FINDINGS: There is no evidence of acute fracture or dislocation. The acromioclavicular joint is intact. No concerning osseous lesions are noted. Procedure Note Pamela Herman MD - 04/27/2025 XR SHOULDER 2+ VW RIGHT DATE: 04/27/2025 8:15 AM HISTORY: Pain COMPARISON: None FINDINGS: There is no evidence of acute fracture or dislocation. The acromioclavicular joint is intact. No concerning osseous lesions are noted. IMPRESSION: No acute osseous injury. DICTATION LOCATION: [address] [place] Oskar Boo PA-C DIAGNOSTIC IMAGING ORDERABLE S Final Result from Last 3 Months Insurance [facility] [id number] [facility] [id number] [employer] COMP
[2025-05-27 09:35] LABS: Beta HCG Quantitative < 2.39 mIU/ML
== END 2025-05-27 08:23 | disposition home or self-care (01) ==
LOC: ANHLAB 08:24
PROVIDERS: Visit Provider Obstetrics & Gynecology Gynecology
DX: N94.89 Other specified conditions associated with female genital organs and menstrual cycle (principal)
CPT/HCPCS: 36415; 84702